=== PATIENT | male | born 1985 | race Caucasian/White ===

== ENCOUNTER 2018-02-16 08:43 | Emergency (ER) | payer OTHER ==
[2018-02-16] MEDS: PROPOFOL 1,000 MG in EMPTY BAG 1 BAG IV SCH ×2 (09:04→11:19)
[2018-02-16] MEDS ORDERED: RX INFO: IV CONTRAST WAS GIVEN 1 EACH MISC MISCELLANE PRN (09:22)
[2018-02-16 09:24] LABS: ABG Base Excess -0.4 mmol/L; ABG HCO3 26 mmol/L (21-25); ABG Oxygen Saturation 99.9 % (94-97); ABG PCO2 54 mmHg (35-45); ABG PO2 367 mmHg (83-108); ABG TCO2 28 mmol/L (19-24)
[2018-02-16 09:35] LABS: Basophils % (A) 0 %; Eosinophils % (A) 1 %; HCT 43.5 % (39.0-53.0); HGB 13.9 gm/dL (13.0-17.5); Lymphocytes % (A) 12 %; MCH 26.6 pg (25.0-35.0); MCHC 31.8 g/dL (31.0-37.0); MCV 83.5 fL (80.0-100.0); Monocytes # (A) 0.3 k/uL (0-1.0); Monocytes % (A) 4 %; Neutrophils % (A) 83 %; Platelet Count 246 k/uL (150-450); RBC 5.21 m/uL (4.30-5.90); RDW 14.5 % (11.5-15.5); WBC 8.4 k/uL (3.8-10.6)
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
[2018-02-16 09:48] LABS: ALT 72 U/L (21-72); AST 64 U/L (17-59); Albumin 3.5 g/dL (3.5-5.0); Alcohol <10 mg/dL; Alkaline Phosphatase 49 U/L (38-126); Amylase 46 U/L (30-110); Anion Gap 12 mmol/L; Blood Urea Nitrogen 13 mg/dL (9-20); Calcium 8.4 mg/dL (8.4-10.2); Carbon Dioxide 24 mmol/L (22-30); Chloride 104 mmol/L (98-107); Glucose 114 mg/dL (74-99); Potassium 3.5 mmol/L (3.5-5.1); Sodium 140 mmol/L (137-145); Total Bilirubin 0.6 mg/dL (0.2-1.3); Total Protein 5.9 g/dL (6.3-8.2)
[2018-02-16 09:53] LABS: INR 1.2 (<1.2); Prothrombin Time 11.4 sec (9.0-12.0)
[2018-02-16] MEDS: LORazepam 2 MG/ML INJ IV STA ×3 (09:55→11:16)
[2018-02-16 09:56] LABS: Creatine Kinase 446 U/L (55-170)
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
[2018-02-16 10:04] LABS: Partial Thromboplastin Time 21.5 sec (22.0-30.0)
[2018-02-16 10:09] VITALS: BP 128/65; PULSE 110; RESP 26; TEMP 96.8
[2018-02-16 10:09] LABS: Troponin I <0.012 ng/mL (0.000-0.034)
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
[2018-02-16] MEDS ORDERED: ETOMIDATE 2 MG/ML 10 ML VIAL IVP STA (10:14)
[2018-02-16] MEDS ORDERED: MIDAZOLAM (PF) 1 MG/ML 5 ML VIAL IV STA (10:14)
[2018-02-16] MEDS ORDERED: MORPHINE SULFATE 4MG/4ML SYRG IVP STA ×2 (10:14→10:19)
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
[2018-02-16 10:19] LABS: Creatine Kinase MB 3.7 ng/mL (0.0-2.4)
[2018-02-16] MEDS ORDERED: ROCURONIUM BROMIDE 10 MG/ML 10 ML VIAL IV STA (10:19)
[2018-02-16] MEDS ORDERED: SUCCINYLCHOLINE CHLORIDE VIAL 200 MG/10 ML VIAL IV STA (10:20)
[2018-02-16 10:30] LABS: Appearance,Urine Clear (Clear); Bilirubin,Urine Negative (Negative); Blood,Urine Trace (Negative); Color,Urine Light Yellow; Glucose,Urine (UA) Negative (Negative); Ketones,Urine 1+ (Negative); Leukocyte Esterase,Urine Negative (Negative); Mucus,Urine Rare /hpf; Nitrite,Urine Negative (Negative); Protein,Urine Trace (Negative); RBC,Urine 3 /hpf (0-5); Specific Gravity,Urine 1.029 (1.001-1.035); Urobilinogen,Urine <2.0 mg/dL (<2.0); WBC,Urine 2 /hpf (0-5)
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
[2018-02-16 10:40] LABS: Amphetamine Screen,Urine Detected (NotDetected); Barbiturate Screen,Urine Not Detected (NotDetected); Benzodiazepines Screen,Urine Not Detected (NotDetected); Cocaine Screen,Urine Not Detected (NotDetected); Methadone Screen, Urine Not Detected (NotDetected); Opiate Screen,Urine Detected (NotDetected); Oxycodone Screen, Urine Not Detected (NotDetected); Phencyclidine Screen,Urine Not Detected (NotDetected); Tricyclic Antidepressant,Urine Not Detected (NotDetected); Urn Cannabinoid Scrn Detected (NotDetected)
--- NOTE | 2018-02-16 10:41 | XR ---
EXAMINATION TYPE: XR chest 1V portable DATE OF EXAM: 02/16/2018 COMPARISON: Chest x-ray earlier today. HISTORY: ET tube placement. TECHNIQUE: Single frontal view of the chest is obtained. FINDINGS: Evaluation suboptimal due to overlying board artifact. There is new endotracheal tube abov e clavicles and aortic knob approximately 6 cm above erwin. There is extensive subcutaneous emphysem a. There is low lung volumes with mediastinal prominence. There is new right-sided chest tube extendi ng superiorly and medially. There is bilateral opacities suggesting atelectasis and/or contusion. Vis ualized osseous structures are intact. IMPRESSION: As above. Endotracheal tube satisfactory in position. Extensive subcutaneous emphysema n oted more prominent versus prior.
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
--- NOTE | 2018-02-16 11:15 | XR ---
EXAMINATION TYPE: XR chest 1V confirm line [facility] [place] DATE OF EXAM: 02/16/2018 COMPARISON: CT and chest x-rays earlier today HISTORY: Left-sided chest tube and orogastric tube. TECHNIQUE: Single frontal supine view of the chest is obtained. FINDINGS: There is new orogastric tube projecting below left hemidiaphragm. There is new left sided chest tube. Some residual left-sided pneumothorax is likely present. Evaluation suboptimal given sup ine technique. There is better visualization of persistent small right pneumothorax superiorly despit e right-sided chest tube placement. Endotracheal tube has been retracted now is at mid C7 level , maría roximately 11 to 12 cm above erwin. Recommend advancing 5 to 6 cm. There is interval removal of surgical board. There is low lung volumes with persistent right lung [place]. Cardiac silhouette size is stable and within normal limits. Extensive subcutaneous emphysema an d pneumomediastinum remains present, right greater than left. IMPRESSION: 1. New orogastric tube satisfactory in position. 2. Interval Proximal retraction of endotracheal tube, recommend advancing 5 to 6 cm. 3. New left sided chest tube with likely residual small left-sided pneumothorax. 4. Persistent right-sided chest tube with better visualization of small right pneumothorax. 5. Extensive subcutaneous emphysema worse on right side and pneumomediastinum redemonstrated. Persist ent diffuse right lung atelectatic change.
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
[2018-02-17 08:14] LABS: Lipase 35 U/L (23-300)
== END 2018-02-16 11:44 | disposition short-term general hospital (02) ==
LOC: MERGE 08:43 → EC 08:43
DX: S22.32XA Fracture of one rib, left side, initial encounter for closed fracture (principal); S22.31XA Fracture of one rib, right side, initial encounter for closed fracture; S72.351A Displaced comminuted fracture of shaft of right femur, initial encounter for closed fracture; S27.0XXA Traumatic pneumothorax, initial encounter; T79.7XXA Traumatic subcutaneous emphysema, initial encounter; R00.0 Tachycardia, unspecified; R40.2412 Glasgow coma scale score 13-15, at arrival to emergency department; V89.2XXA Person injured in unspecified motor-vehicle accident, traffic, initial encounter; Y92.410 Unspecified street and highway as the place of occurrence of the external cause
CPT/HCPCS: 99291; 32551; 29505; 31500; 36415; 36600; 94002; 93005; 86900; 86901; 80053; 82150; 82550; 82553; 82805; 83605; 83690; 84484; 85025; 85610; 85730; 86850; 81001; 80306; 80320; 72170; 73551; 71045; 72125; 70450; 75635; 71275; C1729; J0330; J2060; J2250; J2704; Q9967; J2270

== ENCOUNTER 2018-02-26 11:51 | Emergency (ER) | payer OTHER ==
[2018-02-26] MEDS ORDERED: MORPHINE SULFATE 4MG/4ML SYRG IM STA (12:09)
[2018-02-26] MEDS ORDERED: MORPHINE SULFATE 4 MG/0.8 ML SYRINGE (INJ) IM STA (12:18)
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
--- NOTE | 2018-02-26 13:11 | XR ---
EXAMINATION TYPE: XR femur RT , 4 VIEWS DATE OF EXAM ORDERED: 02/26/2018 HISTORY: Pain. COMPARISON: None. FINDINGS: There has been intramedullary barbi fixation of an oblique fracture through the mid diaphysi s of the right femur. Position and alignment are satisfactory. Surgical sutures are present proximall y and distally. IMPRESSION: STATUS POST INTRAMEDULLARY BARBI FIXATION OF THE RIGHT FEMORAL FRACTURE. CODE D: SUBSEQUENT ENCOUNTER FOR CLOSED FRACTURE WITH ROUTINE HEALING
--- NOTE | 2018-02-26 13:12 | XR ---
EXAMINATION TYPE: XR chest 2V DATE OF EXAM: 02/26/2018 HISTORY: Difficulty breathing . REFERENCE: Previous study dated 02/16/2018. FINDINGS: All of the patient's subsequent lines and tubes have been removed. The lungs now appear becca ar. The heart is minimally prominent. Pleural spaces are clear. IMPRESSION: NO ACUTE INTRATHORACIC ABNORMALITY.
[2018-02-26 13:47] VITALS: BP 113/62; PULSE 81; RESP 16
[2018-02-26 14:04] VITALS: TEMP 98
== END 2018-02-26 14:04 | disposition home or self-care (01) ==
LOC: EC 11:51
DX: S70.11XA Contusion of right thigh, initial encounter (principal); S20.211A Contusion of right front wall of thorax, initial encounter; F17.200 Nicotine dependence, unspecified, uncomplicated; W01.0XXA Fall on same level from slipping, tripping and stumbling without subsequent striking against object, initial encounter
CPT/HCPCS: 73552; 71046; 99283; 96372; J2270